=== PATIENT | female | born 1975 | race African-American/Black ===

== ENCOUNTER → 2016-04-18 | Day surgery (SDC) | payer OTHER ==
[~2016-04-18] MED LIST: CLIN150 PO; ERYT1O LEFT EYE; KETOROLAC TROMETHAMINE 30 MG/ML (IVP) VIAL IV PUSH ONE; LIDOCAINE 1%/EPINEPHrine 1:100,000 SOLN 30 ML VIAL ONE; METF500 PO; MIDAZOLAM HCL 2 MG/2 ML VIAL ONE; MMW SWISH-SWAL; ONDANSETRON HCL 4 MG/2 ML VIAL IV PUSH ONE; PROPOFOL 200 MG/20 ML AMP IV ONE; oxyCODONE/ACETAMINOPHEN 5 MG/325 MG TAB ONE
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
== END | disposition home or self-care (01) ==
LOC: ESDC 10:19
PROVIDERS: ATTEND Obstetrics & Gynecology
DX: N92.0 Excessive and frequent menstruation with regular cycle (principal); D25.0 Submucous leiomyoma of uterus; Z30.2 Encounter for sterilization
CPT/HCPCS: 00840; 00952; 58561; 58661; 88302; 88305; J1885; J2250; J2405; J3010